=== PATIENT | female | born 1995 | race Caucasian/White ===

== ENCOUNTER 2023-05-07 14:01 | Emergency (ER) | payer MEDICAID ==
[~2023-05-07] VITALS: Ht 152.4 cm; Wt 93.9 kg
[2023-05-07] MEDS ORDERED: KETOROLAC TROMETHAMINE 15 MG/ML VIAL ONE (15:15)
[2023-05-07] MEDS: IV NS 0.9% 1,000 ML BAG IV ONE (15:20)
[2023-05-07] MEDS: KETOROLAC TROMETHAMINE 15 MG/ML VIAL IV ONE (15:21)
[2023-05-07 16:03] LABS: CALCIUM, SERUM 8.9 mg/dL (8.5-10.1); CREATININE 0.5 mg/dL (0.6-1.3); POTASSIUM 3.8 mmol/L (3.5-5.1)
[2023-05-07 16:09] LABS: ALBUMIN 3.2 g/dL (3.4-5.0); BILIRUBIN,TOTAL 0.3 mg/dL (0.2-1.0)
[2023-05-07 16:46] LABS: BASOPHILS % (AUTO) 0.3 % (0.0-2.0); EOSINOPHILS # (AUTO) 0.2 K/uL (0.0-0.7); EOSINOPHILS % (AUTO) 2.4 % (0.0-6.0); HEMATOCRIT 37 % (33-45); HEMOGLOBIN 11.9 g/dL (11.5-14.8); LYMPHOCYTES % (AUTO) 23.4 % (20.0-44.0); MEAN CORPUSCULAR HEMOGLOBIN 27 PG (26.0-33.0); MEAN CORPUSCULAR HGB CONC 33 g/dl (31.0-36.0); MEAN CORPUSCULAR VOLUME 83 fL (82-100); MONOCYTES # (AUTO) 0.6 K/uL (0.1-1.30); MONOCYTES % (AUTO) 7.4 % (2.0-12.0); NEUTROPHILS # (AUTO) 5.7 K/uL (1.8-8.9); NEUTROPHILS % (AUTO) 66.5 % (43.0-81.0); PLATELET COUNT (AUTO) 214 K/uL (150-450); RED BLOOD CELL COUNT(AUTO) 4.38 MIL/uL (4.0-5.2); WHITE BLOOD COUNT (AUTO) 8.6 K/uL (4.3-11.0)
[2023-05-07 17:01] LABS: APPEARANCE,URINE CLEAR (CLEAR); BILIRUBIN,URINE NEGATIVE (NEGATIVE); BLOOD, URINE NEGATIVE Ery/uL (NEGATIVE); COLOR,URINE YELLOW (YELLOW); KETONES,URINE NEGATIVE (NEGATIVE); LEUKOCYTE ESTERASE ,URINE 1+ (NEGATIVE); NITRITE, URINE NEGATIVE (NEGATIVE); PH,URINE 6.5 (5.0-8.0); PROTEIN,URINE NEGATIVE (NEGATIVE); UGLUCOSE NEGATIVE (NEGATIVE)
[2023-05-07 17:05] LABS: PREGNANCY TEST URINE QUAL NEGATIVE (NEGATIVE)
[2023-05-07 19:00] LABS: ADD URINE CULTURE YES; BACTERIA,URINE 1+ /HPF (None Seen); RBC,URINE 0-2 /HPF (0-2); SQUAMOUS EPITHELIAL CELL,UR 0-2 /HPF (None Seen)
[2023-05-07] MEDS ORDERED: CEPH500C2 PO (19:25)
[2023-05-07] MEDS ORDERED: CEFTRIAXONE 1GM BAG (ER ONLY) 50 ML IV ONE (19:29)
[2023-05-07] MEDS: CEFTRIAXONE 1GM BAG (ER ONLY) 50 ML IV ONE (19:30)
[2023-05-07 20:00] VITALS: BP 108/69; TEMP 98.1; O2SAT 100
== END 2023-05-07 20:00 | disposition home or self-care (01) ==
LOC: ER 14:50
DX: N12 Tubulo-interstitial nephritis, not specified as acute or chronic (principal); I10 Essential (primary) hypertension
CPT/HCPCS: 99285; 96365; 76700; 71045; 96361; 96375; 85025; 80048; 87086; 83690; 80076; 84703; 81001; 36415; J7030; J0696; J1885

== ENCOUNTER 2023-07-31 01:11 | Emergency (ER) | payer MEDICAID ==
[~2023-07-31] VITALS: Ht 149.9 cm; Wt 92.5 kg
[~2023-07-31 01:11] MED LIST: CEPH500C2 PO
[2023-07-31 02:01] VITALS: BP 111/68; TEMP 209.3; O2SAT 99
== END 2023-07-31 02:01 | disposition home or self-care (01) ==
LOC: ER 01:14
DX: R51.9 Headache, unspecified (principal); Z87.440 Personal history of urinary (tract) infections; D64.9 Anemia, unspecified; Z79.899 Other long term (current) drug therapy

== ENCOUNTER 2024-06-16 10:46 | Emergency (ER) | payer MEDICAID ==
[~2024-06-16] VITALS: Ht 149.9 cm; Wt 93.0 kg
[2024-06-16 12:01] LABS: PREGNANCY TEST URINE QUAL NEGATIVE (NEGATIVE)
[2024-06-16] MEDS ORDERED: diphenhydrAMINE HCL 50 MG CAPSULE ONE (12:01)
[2024-06-16] MEDS: diphenhydrAMINE HCL 25 MG CAPSULE PO ONE (12:03)
[2024-06-16] MEDS ORDERED: predniSONE 20 MG TABLET ONE (12:05)
[2024-06-16] MEDS: predniSONE 50 MG TABLET PO ONE (12:09)
[2024-06-16] MEDS ORDERED: PRED20TA PO (12:45)
[2024-06-16] MEDS ORDERED: EPIN0.3P3 IM (12:45)
[2024-06-16 13:12] VITALS: BP 128/88; TEMP 98.8; O2SAT 98
== END 2024-06-16 13:13 | disposition home or self-care (01) ==
LOC: ER 10:46
DX: L50.9 Urticaria, unspecified (principal); J06.9 Acute upper respiratory infection, unspecified; Z87.440 Personal history of urinary (tract) infections; Z87.59 Personal history of other complications of pregnancy, childbirth and the puerperium; Z20.822 Contact with and (suspected) exposure to COVID-19
CPT/HCPCS: 99284; 71045; 87426; 87804 ×2; 84703; Q0163; J7512